=== PATIENT | male | born 1970 | race Hispanic/Latino ===

== ENCOUNTER 2021-01-13 06:47 | Outpatient (CLI) | payer OTHER | END 2021-01-13 06:48 | disposition home or self-care (01) | LOC: BICULT 06:47 | PROVIDERS: ATTEND Family Medicine | DX: R14.0 Abdominal distension (gaseous) (principal); K76.0 Fatty (change of) liver, not elsewhere classified; N28.1 Cyst of kidney, acquired | CPT/HCPCS: 76700 ==

== ENCOUNTER 2021-08-17 07:03 | Outpatient (CLI) | payer OTHER ==
[2021-08-17] MEDS ORDERED: Iopamidol-370 76% 500 ML 1 ML ONE (09:17)
== END 2021-08-17 07:04 | disposition home or self-care (01) ==
LOC: BICCT 07:03
PROVIDERS: ATTEND Urology
DX: N28.1 Cyst of kidney, acquired (principal)
CPT/HCPCS: 74170

== ENCOUNTER 2023-05-11 15:23 | Outpatient (CLI) | payer OTHER | END 2023-05-11 15:24 | disposition home or self-care (01) | LOC: BICRAD 15:23 | PROVIDERS: ATTEND Family Medicine | DX: M25.561 Pain in right knee (principal); M17.11 Unilateral primary osteoarthritis, right knee; M25.461 Effusion, right knee ==

== ENCOUNTER 2025-01-15 11:18 | Emergency (ER) | payer SELFPAY ==
[~2025-01-15 11:18] MED LIST: Iopamidol-370 76% 500 ML MDV (1 ML CHARGE) ONE
[2025-01-15 14:42] LABS: #Basophils 0.03 10x3/uL (0.0-0.2); #Eosinophils 0.34 10x3/uL (0.0-0.7); #Monocytes 0.28 10x3/uL (0.11-0.59); #Neutrophils 4.08 10x3/uL (1.40-6.50); %Basophils 0.4 % (0.0-1.0); %Eosinophils 4.7 % (0.0-10.0); %Lymphocytes 33.9 % (21.0-51.0); %Monocytes 3.9 % (0.0-10.0); %Neutrophils 56.8 % (42.0-75.0); Hematocrit 40.9 % (42.0-52.0); Hemoglobin 14.4 g/dL (14.0-18.0); Mean Corpuscular Hemoglobin 32.1 pg (27.0-31.0); Mean Corpuscular Volume 91.3 fL (78.0-98.0); Platelet Count 189 10x3/uL (130-400); Red Blood Cell (RBC) Count 4.48 mill/uL (4.70-6.10); White Blood Cell (WBC) Count 7.19 10x3/uL (4.8-10.8)
[2025-01-15 14:47] LABS: Bacteria/HPF None Seen HPF (None Seen); CAUTI Indications for Culture Pelvic or flank pain; Glucose, Urine (Dipstick) Normal (Negative); Leukocyte Negative Leu/uL (Negative); Protein, Urine (Dipstick) Negative (Neg-Trace); RBC/HPF 0-3 HPF (0-3); Specific Gravity, Urine 1.015 (1.002-1.036); WBC/HPF 0-3 HPF (0-3)
[2025-01-15 14:51] LABS: Urine Culture Reflex No No
[2025-01-15 15:06] LABS: ALT (SGPT) 13 U/L (Less than 45); AST (SGOT) 26 U/L (11-34); Albumin 4.2 g/dL (3.1-4.5); Alkaline Phosphatase 100 U/L (40-110); Anion Gap 15 mmol/L (10-20); BUN (Urea Nitrogen) 17 mg/dL (8.4-25.7); Bilirubin, Total 0.4 mg/dL (0.3-1.2); Calc. Creatinine Clearance 0 mL/min (70-130); Calcium 9.1 mg/dL (7.8-10.44); Carbon Dioxide 24 mmol/L (22-29); Chloride 105 mmol/L (98-107); Globulin 3.4 g/dL (2.4-3.5); Glucose 185 mg/dL (70-105); Lipase 38 U/L (8-78); Potassium 3.7 mmol/L (3.5-5.1); Sodium 140 mmol/L (136-145)
== END 2025-01-15 16:50 | disposition home or self-care (01) ==
LOC: ERS 11:18
DX: I70.8 Atherosclerosis of other arteries (principal); R11.0 Nausea; I10 Essential (primary) hypertension; E78.5 Hyperlipidemia, unspecified; Z79.899 Other long term (current) drug therapy
CPT/HCPCS: 71045; 74177; 76705; 80053; 81001; 83690; 85025; Q9967